=== PATIENT | male | born 1995 | race Caucasian/White ===

== ENCOUNTER 2017-04-19 20:16 | Emergency (ER) | payer OTHER ==
[~2017-04-19] VITALS: Ht 177.8 cm; Wt 85.8 kg
[~2017-04-19 20:16] MED LIST: Z.0.NO CURRENT MEDS
[2017-04-19 20:33] VITALS: BP 138/85; PULSE 106; RESP 12; TEMP 98.8; O2SAT 98
[2017-04-19] MEDS ORDERED: MINEOIL2 PO (20:52)
[2017-04-19] MEDS ORDERED: ASPI325T PO (20:52)
[2017-04-19] MEDS ORDERED: MS C15TA2 PO (20:52)
[2017-04-19] MEDS ORDERED: DOCU100C PO (20:52)
[2017-04-19] MEDS ORDERED: OXYC1CAP PO (20:52)
[2017-04-19] MEDS ORDERED: FAMO20TA2 PO (20:52)
--- NOTE | 2017-04-19 21:08 | PD ---
HPI Chief Complaint: Skin Problem Time Seen by Provider: 20:50 Travel History International Travel<30 days: No Contact w/Intl Traveler<30days: No Traveled to known affect area: No History of Present Illness HPI 21-year-old male with history of avascular necrosis presents to the emergency room for evaluation of rash to his abdomen. He first noticed it today. Patient denies pain or itchiness. Reports some irritation to the area. He has not taken anything or done anything for his symptoms. Patient just had total hip replacement on the right side 4 days ago and has not been able to shower since then. He has taking narcotic pain medication for the surgery and is on baby aspirin. PFSH Past Medical History Hx Anticoagulant Therapy: Yes Chemotherapy: Yes (in past) Diminished Hearing: No Medical other: Yes (avascular necrosis HLH BLOOD DISORDER) Immunizations Current: Yes Tetanus Vaccination: < 5 Years Influenza Vaccination: No Past Surgical History Other Surgery: Yes (SURGERY ON LEFT HAND) Social History Alcohol Use: No Tobacco Use: No Substance Use: No Allergies-Medications (Allergen,Severity, Reaction): Coded Allergies: Bactrim (Verified Allergy, Unknown, rash, 04/19/17) Ceftin (Verified Allergy, Unknown, rash, 04/19/17) Reported Meds & Prescriptions Reported Meds & Active Scripts Active Reported Mineral Oil Liq (Mineral Oil) 15 Ml Liq 15 Ml PO DAILY PRN Docusate Sodium 100 Mg Cap 100 Mg PO BID Famotidine 20 Mg Tab 20 Mg PO DAILY Aspirin 325 Mg Tab 325 Mg PO DAILY Ms Contin (Morphine Sulfate) 15 Mg Tab 15 Mg PO BID Oxycodone (Oxycodone HCl) 5 Mg Cap 5 Mg PO Q3HR PRN Review of Systems Except as stated in HPI: all other systems reviewed are Neg Physical Exam Narrative GENERAL: Well-nourished, well-developed male in no acute distress. Afebrile. Ambulatory. SKIN: Focused skin assessment warm/dry. There are multiple 1 mm erythematous, maculopapular lesions to the abdomen around the hair follicles. HEAD: Normocephalic. EYES: No scleral icterus. No injection or drainage. NECK: Supple, trachea midline. No JVD or lymphadenopathy. CARDIOVASCULAR: Regular rate and rhythm without murmurs, gallops, or rubs. RESPIRATORY: Breath sounds equal bilaterally. No accessory muscle use. PSYCHIATRIC: No delusional thought processes. No hallucinations. Data Data Last Documented VS Vital Signs Date Time Temp Pulse Resp B/P Pulse Ox O2 Delivery O2 Flow Rate FiO2 04/19/17 20:45 04/19/17 20:33 98.8 106 12 98 MDM Medical Decision Making Medical Screen Exam Complete: Yes Emergency Medical Condition: Yes Medical Record Reviewed: Yes Differential Diagnosis Abscess, dermatitis, folliculitis, adverse reaction, Narrative Course 21-year-old male presents to the emergency room for evaluation of a rash to his abdomen for the past day. Patient had total hip replacement 4 days ago and has not had a shower since then. Physical exam reveals multiple 1 mm maculopapular , erythematous lesions surrounding the hair follicles with occasional purulence. This is folliculitis. No indication for antibiotics at this time. Patient was told to follow-up with his primary care physician and/or surgeon and return to the emergency room for worsening symptoms. He understands and agrees to plan. Diagnosis Primary Impression: Folliculitis Referrals: Primary Care Physician Patient Instructions: Folliculitis (ED), General Instructions Additional Instructions: Rest and drink plenty of fluids. Follow up with a primary care physician. Return to emergency room for worsening symptoms, as discussed. Disposition: 01 DISCHARGE HOME Condition: Stable Shauna Farrar Apr 19, 2017 21:08
== END 2017-04-19 22:00 | disposition home or self-care (01) ==
LOC: PHEFT 20:16
DX: L73.9 Follicular disorder, unspecified (principal); Z79.01 Long term (current) use of anticoagulants
CPT/HCPCS: 99281

== ENCOUNTER 2017-04-22 11:25 | Emergency (ER) | payer OTHER ==
[~2017-04-22 11:25] MED LIST changes: +ASPI325T PO; +DOCU100C PO; +FAMO20TA2 PO; +MINEOIL2 PO; +MS C15TA2 PO; +OXYC1CAP PO; -Z.0.NO CURRENT MEDS
[2017-04-22 11:36] VITALS: BP 110/53; PULSE 90; RESP 20; TEMP 98.4; O2SAT 95
[2017-04-22] MEDS ORDERED: COLY4000S PO (12:33)
[2017-04-22] MEDS ORDERED: MAGN1SOL2 PO (12:33)
--- NOTE | 2017-04-22 12:36 | PD ---
HPI Chief Complaint: Abdominal Pain Time Seen by Provider: 12:14 Travel History International Travel<30 days: No Contact w/Intl Traveler<30days: No Traveled to known affect area: No History of Present Illness HPI This 21-year-old male is complaining of lower abdominal. He hit his right hip replaced a week ago at the [facility]. He has not had a bowel movement since then. He was on pain medication for a few days but has not taken any oxycodone recently. He says he has been eating well. He has not had a bowel movement since the surgery. 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 PFSH Past Medical History Hx Anticoagulant Therapy: Yes Chemotherapy: Yes (in past) Diminished Hearing: No Immunizations Current: Yes Influenza Vaccination: No ?: Not Past Surgical History Other Surgery: Yes (SURGERY ON LEFT HAND) Social History Alcohol Use: No Tobacco Use: No Substance Use: No Allergies-Medications (Allergen,Severity, Reaction): Coded Allergies: Bactrim (Verified Allergy, Unknown, rash, 04/22/17) Ceftin (Verified Allergy, Unknown, rash, 04/22/17) Reported Meds & Prescriptions Reported Meds & Active Scripts Active Citrate of Magnesia Liq (Magnesium Citrate) 300 Ml Liq 300 Ml PO DIRECTED Golytely 236 gm (Polyethylene Glycol/Electrolytes) 4,000 Ml Soln 4,000 Ml PO ONCE Reported Mineral Oil Liq (Mineral Oil) 15 Ml Liq 15 Ml PO DAILY PRN Docusate Sodium 100 Mg Cap 100 Mg PO BID Famotidine 20 Mg Tab 20 Mg PO DAILY Aspirin 325 Mg Tab 325 Mg PO DAILY Ms Contin (Morphine Sulfate) 15 Mg Tab 15 Mg PO BID Oxycodone (Oxycodone HCl) 5 Mg Cap 5 Mg PO Q3HR PRN Review of Systems General / Constitutional: No: Fever, Chills HENT: No: Rhinorrhea Cardiovascular: No: Chest Pain or Discomfort, Palpitations Respiratory: No: Cough, Shortness of Breath Gastrointestinal: Positive: Abdominal Pain, Constipation, No: Vomiting, Diarrhea Genitourinary: No: Urgency, Frequency Musculoskeletal: No: Myalgias, Arthralgias Skin: No Rash Physical Exam Narrative GENERAL: Well-developed male SKIN: Focused skin assessment warm/dry. HEAD: Atraumatic. Normocephalic. EYES: Pupils equal and round. No scleral icterus. No injection or drainage. ENT: No nasal bleeding or discharge. Mucous membranes pink and moist. NECK: Trachea midline. No JVD. GASTROINTESTINAL: Abdomen soft, non-tender, nondistended. Hepatic and splenic margins not palpable. Rectal exam there is no stool present. No masses are felt MUSCULOSKELETAL: No obvious deformities. No clubbing. No cyanosis. No edema. NEUROLOGICAL: Awake and alert. No obvious cranial nerve deficits. Motor grossly within normal limits. Normal speech. PSYCHIATRIC: Appropriate mood and affect; insight and judgment normal. Data Data Last Documented VS Vital Signs Date Time Temp Pulse Resp B/P Pulse Ox O2 Delivery O2 Flow Rate FiO2 04/22/17 11:36 98.4 90 20 110/53 95 Orders Bisacodyl Supp (Dulcolax Supp) (04/22/17 12:45) [facility] Medical Decision Making Medical Screen Exam Complete: Yes Emergency Medical Condition: Yes Medical Record Reviewed: Yes Differential Diagnosis Differential includes constipation Narrative Course . No evidence of fecal impaction. Patient has used some Dulcolax. We'll give a Dulcolax here. I have written prescriptions for both citrate of magnesium and GoLYTELY. I recommended to him that he uses citrate of magnesium first and if no results and goes to GoLYTELY. He is stable for discharge Diagnosis Primary Impression: Constipation Qualified Code: K59.00 - Constipation, unspecified constipation type Scripts Magnesium Citrate Liq (Citrate of Magnesia Liq)300 Ml Aki114 Ml PO DIRECTED #1 BOTTLE Ref 0 Prov:Parish Freed MD 04/22/17 Peg-Electrolytes (Golytely 236 gm)4,000 Ml Soln4,000 Ml PO ONCE #1 CONTAINER Ref 0 Prov:Parish Freed MD 04/22/17 Disposition: DISCHARGE HOME Condition: Stable Parish Freed MD Apr 22, 2017 12:36
[2017-04-22] MEDS ORDERED: BISACODYL 10 MG SUPP RECTAL ONE (12:45)
== END 2017-04-22 12:52 | disposition home or self-care (01) ==
LOC: PHED 11:25
DX: K59.00 Constipation, unspecified (principal); Z96.641 Presence of right artificial hip joint; Z79.01 Long term (current) use of anticoagulants
CPT/HCPCS: 99283

== ENCOUNTER 2017-05-16 07:03 | Emergency (ER) | payer OTHER ==
[~2017-05-16] VITALS: Ht 177.8 cm; Wt 85.0 kg
[~2017-05-16 07:03] MED LIST changes: +COLY4000S PO; +MAGN1SOL2 PO
[2017-05-16 07:05] VITALS: BP 133/90; PULSE 79; RESP 15; TEMP 98; O2SAT 99
[2017-05-16] MEDS ORDERED: SODIUM CHLORIDE 0.9% FLUSH 10 ML FLUSH IVF PRN (07:30)
--- NOTE | 2017-05-16 07:35 | PD ---
HPI Chief Complaint: Respiratory Symptoms Time Seen by Provider: 07:19 Travel History International Travel<30 days: No Contact w/Intl Traveler<30days: No Traveled to known affect area: No History of Present Illness HPI 21-year-old male states over the past 4 weeks he has been short of breath. He states he has a hard time catching his breath and getting in a deep breath. He states when this first started he went to an emergency room there where he had surgery for his hip or placement in [place] and had a CAT scan that was negative. He states he has not followed up since then and doesn't have a primary care physician. He states he does have an autoimmune specialist that he sees about every other year in [place] and in regards to that he has been fine. He denies any pain, fever or other concurrent complaints. His symptoms are improving now here in the emergency department at rest. He states he feels like his symptoms were worse last night. PFSH Past Medical History Narrative Medical Notes avascular necrosis status post hip replacement, autoimmune condition "hlh " Hx Anticoagulant Therapy: Yes Chemotherapy: Yes (in past) Diminished Hearing: No Immunizations Current: Yes Past Surgical History Joint Replacement: Yes (hip) Other Surgery: Yes (SURGERY ON LEFT HAND) Social History Alcohol Use: No Tobacco Use: No Substance Use: No Allergies-Medications (Allergen,Severity, Reaction): Coded Allergies: Bactrim (Verified Allergy, Unknown, rash, 05/16/17) Ceftin (Verified Allergy, Unknown, rash, 05/16/17) Uncoded Allergies: CEFEPIME (Allergy, Mild, 05/16/17) Reported Meds & Prescriptions Reported Meds & Active Scripts Active Reported Famotidine 20 Mg Tab 20 Mg PO DAILY Aspirin 325 Mg Tab 325 Mg PO DAILY Review of Systems Except as stated in HPI: all other systems reviewed are Neg Physical Exam Narrative GENERAL: Well-nourished, well-developed patient. well appearing SKIN: Warm and dry. HEAD: Normocephalic and atraumatic. EYES: No injection or drainage. ENT: No nasal drainage noted. NECK: Supple, trachea midline. CARDIOVASCULAR: Regular rate and rhythm RESPIRATORY: Breath sounds equal bilaterally. No accessory muscle use. GASTROINTESTINAL: Abdomen soft, non-tender, nondistended. EXTREMITIES: No edema. NEUROLOGICAL: Awake and alert. Motor and sensory grossly within normal limits. Normal speech. Data Data Last Documented VS Vital Signs Date Time Temp Pulse Resp B/P Pulse Ox O2 Delivery O2 Flow Rate FiO2 05/16/17 09:39 63 20 114/74 98 Room Air 05/16/17 07:05 98.0 Orders Electrocardiogram (05/16/17 07:27) Basic Metabolic Panel (Bmp) (05/16/17 07:27) Complete Blood Count With Diff (05/16/17 07:27) D-Dimer (05/16/17 07:27) Magnesium (Mg) (05/16/17 07:27) Prothrombin Time / Inr (Pt) (05/16/17 07:27) Act Partial Throm Time (Ptt) (05/16/17 07:27) Chest, Single Ap (05/16/17 07:27) Ecg Monitoring (05/16/17 07:27) Iv Access Insert/Monitor (05/16/17 07:27) Oximetry (05/16/17 07:27) Sodium Chloride 0.9% Flush (Ns Flush) (05/16/17 07:30) Ct Pulmonary Angiogram (05/16/17 ) Iohexol 350 Inj (Omnipaque 350 Inj) (05/16/17 10:02) Labs Laboratory Tests Test 05/16/17 07:50 White Blood Count 5.2 TH/MM3 Red Blood Count 4.76 MIL/MM3 Hemoglobin 13.5 GM/DL Hematocrit 41.0 % Mean Corpuscular Volume 86.1 FL Mean Corpuscular Hemoglobin 28.4 PG Mean Corpuscular Hemoglobin 33.0 % Concent Red Cell Distribution Width 13.5 % Platelet Count 235 TH/MM3 Mean Platelet Volume 7.5 FL Neutrophils (%) (Auto) 54.0 % Lymphocytes (%) (Auto) 31.8 % Monocytes (%) (Auto) 7.4 % Eosinophils (%) (Auto) 6.0 % Basophils (%) (Auto) 0.8 % Neutrophils # (Auto) 2.8 TH/MM3 Lymphocytes # (Auto) 1.6 TH/MM3 Monocytes # (Auto) 0.4 TH/MM3 Eosinophils # (Auto) 0.3 TH/MM3 Basophils # (Auto) 0.0 TH/MM3 CBC Comment DIFF FINAL Differential Comment Prothrombin Time 10.7 SEC Prothromb Time International 1.0 RATIO Ratio Activated Partial 29.3 SEC Thromboplast Time D-Dimer Quantitative (PE/DVT) 1.23 MG/L FEU Sodium Level 141 MEQ/L Potassium Level 4.0 MEQ/L Chloride Level 105 MEQ/L Carbon Dioxide Level 29.2 MEQ/L Anion Gap 7 MEQ/L Blood Urea Nitrogen 13 MG/DL Creatinine 0.70 MG/DL Estimat Glomerular Filtration 141 ML/MIN Rate Random Glucose 82 MG/DL Calcium Level 9.4 MG/DL Magnesium Level 2.2 MG/DL MDM Medical Decision Making Medical Screen Exam Complete: Yes Emergency Medical Condition: Yes Medical Record Reviewed: Yes (pmh confirmed) Interpretation(s) CBC & BMP Diagram 05/16/17 07:50 Last 24 hours Impressions Chest X-Ray 05/16/17726 Signed Impressions: Service Date/Time: Tuesday, May 16, 2017 07:30 - CONCLUSION: Normal examination. Houston Ann MD CT Angiography 05/16/17 0000 Signed Impressions: Service Date/Time: Tuesday, May 16, 2017 09:49 - CONCLUSION: Normal examination. Houston Ann MD Differential Diagnosis PE, anemia, pneumonia, pneumothorax Narrative Course Will check blood work, chest x-ray and reevaluate. Lengthy discussion with patient and family and we'll start with blood test d-dimer first which they are in agreement to ed workup no acute, Patient denies any new complaints and states that they are feeling better. Patient happy with care, all questions answered. Patient knows that follow up is incumbent on them and to return to the emergency room immediately if new or worsening symptoms develop. Patient given strict return precautions, vitals reviewed and are normal, agrees to further workup as an outpatient. Diagnosis Primary Impression: Shortness of breath Patient Instructions: General Instructions Additional Instructions: return as needed, follow with primary thursday Med/Other Pt SpecificInfo: No Change to Meds Disposition: 01 DISCHARGE HOME Condition: Stable Kaitlin Fournier MD May 16, 2017 07:35
--- NOTE | 2017-05-16 07:48 | RADRPT ---
EXAM DATE/TIME: 05/16/2017 07:30 [facility] COMPARISON: No previous studies available for comparison. INDICATIONS : Shortness of breath for 1 week MEDICAL HISTORY : None. SURGICAL HISTORY : None. ENCOUNTER: Initial ACUITY: 1 week PAIN SCORE: 0/10 LOCATION: Bilateral chest FINDINGS: A single view of the chest demonstrates the lungs to be symmetrically aerated without evidence of mas s, infiltrate or effusion. The cardiomediastinal contours are unremarkable. Osseous structures are intact. CONCLUSION: Normal examination. Houston Ann MD on May 16, 2017 at 7:47 Board Certified Radiologist. This report was verified electronically.
[2017-05-16 08:03] LABS: AUTOMATED NEUTROPHIL # 2.8 TH/MM3 (1.8-7.7); BASOPHIL % 0.8 % (0.0-2.0); EOSINOPHIL # 0.3 TH/MM3 (0-0.4); HEMO FLAGS DIFF FINAL; LYMPH % 31.8 % (9.0-44.0); LYMPHOCYTE # 1.6 TH/MM3 (1.0-4.8); MEAN CELL VOLUME 86.1 FL (80.0-100.0); MEAN CORPUSCULAR HEMOGLOBIN 28.4 PG (27.0-34.0); MONO % 7.4 % (0.0-8.0); PLATELET COUNT 235 TH/MM3 (150-450); RED BLOOD COUNT 4.76 MIL/MM3 (4.50-5.90); RED CELL DISTRIBUTION WIDTH 13.5 % (11.6-17.2); WHITE BLOOD COUNT 5.2 TH/MM3 (4.0-11.0)
[2017-05-16 08:18] LABS: BICARBONATE 29.2 MEQ/L (21.0-32.0); MAGNESIUM 2.2 MG/DL (1.5-2.5)
[2017-05-16 08:19] LABS: APTT (PATIENT) 29.3 SEC (24.3-30.1); PROTHROMBIN TIME - PATIENT 10.7 SEC (9.8-11.6)
[2017-05-16 09:39] VITALS: BP 114/74; PULSE 63; RESP 20; O2SAT 98
[2017-05-16] MEDS ORDERED: IOHEXOL 350 MG/ML 10 ML VIAL (for RAD DIAG) IV ONE (10:02)
--- NOTE | 2017-05-16 10:16 | RADRPT ---
EXAM DATE/TIME: 05/16/2017 09:49 [facility] COMPARISON: No previous studies available for comparison. INDICATIONS : Shortness of breath since last night. IV CONTRAST: 73 cc Omnipaque 350 (iohexol) IV RADIATION DOSE: 23.43 CTDIvol (mGy) MEDICAL HISTORY : avascular necrosis SURGICAL HISTORY : hip surgery, shoulder surgery ENCOUNTER: Initial ACUITY: 1 day PAIN SCALE: 0/10 LOCATION: Bilateral chest TECHNIQUE: Volumetric scanning of the chest was performed using a pulmonary embolism protocol MIP images were re constructed. Using automated exposure control and adjustment of the mA and/or kV according to patien t size, radiation dose was kept as low as reasonably achievable to obtain optimal diagnostic quality images. DICOM format image data is available electronically for review and comparison. FINDINGS: PULMONARY ARTERIES: No filling defects are seen in the pulmonary arteries through the segmental level. LUNGS: There is no consolidation or pneumothorax . No concerning pulmonary nodule is visualized. PLEURAE: There is no pleural thickening or pleural effusion. MEDIASTINUM: There is good visualization of the great vessels of the middle mediastinum. No evidence of mediastin al or hilar adenopathy/mass. MUSCULOSKELETAL: Within normal limits for patient age. MISCELLANEOUS: The visualized upper abdominal organs demonstrate no acute abnormality. CONCLUSION: Normal examination. Houston Ann MD on May 16, 2017 at 10:13 Board Certified Radiologist. This report was verified electronically.
--- NOTE | 2017-05-16 15:25 | EKG ---
Date Performed: 05/16/2017 Time Performed: 07:34:40 PTAGE: 21 years EKG: Sinus rhythm NORMAL ECG NO PREVIOUS TRACING DOCTOR: Manuelito Zuñiga Interpretating Date/Time 05/16/2017 15:25:01
== END 2017-05-16 10:59 | disposition home or self-care (01) ==
LOC: NEPE 07:03
DX: R06.02 Shortness of breath (principal); Z79.82 Long term (current) use of aspirin; D76.1 Hemophagocytic lymphohistiocytosis; Z96.649 Presence of unspecified artificial hip joint
CPT/HCPCS: 71010; 71275; 80048; 83735; 85025; 85379; 85610; 85730; 93005; 99285; Q9967

== ENCOUNTER 2017-05-22 19:18 | Emergency (ER) | payer OTHER ==
[~2017-05-22] VITALS: Ht 177.8 cm; Wt 85.0 kg
[~2017-05-22 19:18] MED LIST changes: -COLY4000S PO; -DOCU100C PO; -MAGN1SOL2 PO; -MINEOIL2 PO; -MS C15TA2 PO; -OXYC1CAP PO
[2017-05-22 19:20] VITALS: BP 133/76; PULSE 90; RESP 16; TEMP 98.5; O2SAT 98
--- NOTE | 2017-05-22 20:47 | PD ---
HPI Chief Complaint: Edema Time Seen by Provider: 20:45 Travel History International Travel<30 days: No Contact w/Intl Traveler<30days: No Traveled to known affect area: No History of Present Illness HPI 21 year old male presents to the emergency department for evaluation of swelling around his surgical incision site to the right hip. Patient had surgery [address] Karli Jorgensen at [facility] in [place]. He states he has been doing well. However, he noticed some worsening pain approximately 2 hours prior to arrival and noticed that it was swollen around the site. Patient denies any fevers or chills. No chest pain or shortness breath. No abdominal pain. No nausea, vomiting, diarrhea. Patient denies any erythema. He denies the loss of range of motion. Patient reports chronic numbness around the incision site. He states he has taken aspirin 325 mg twice a day with famotidine. Patient states he has recently increased his activity. He has no other complaints at this time. PFSH Past Medical History Hx Anticoagulant Therapy: Yes (ASA 325MG BID) Autoimmune Disease: Yes (HLH) Chemotherapy: Yes Diminished Hearing: No Immune Disorder: Yes (HLH ) Medical other: Yes (avascular necrosis) Immunizations Current: Yes Past Surgical History Joint Replacement: Yes (r.hip) Other Surgery: Yes (WISDOM TEETH EXTRACTION) Social History Alcohol Use: No Tobacco Use: No Substance Use: No Allergies-Medications (Allergen,Severity, Reaction): Coded Allergies: Bactrim (Verified Allergy, Unknown, rash, 05/22/17) Ceftin (Verified Allergy, Unknown, rash, 05/22/17) Uncoded Allergies: CEFEPIME (Allergy, Mild, 05/16/17) Reported Meds & Prescriptions Reported Meds & Active Scripts Active Reported Famotidine 20 Mg Tab 20 Mg PO DAILY Aspirin 325 Mg Tab 325 Mg PO DAILY Review of Systems Except as stated in HPI: all other systems reviewed are Neg Physical Exam Narrative GENERAL: Well-nourished, well-developed male patient, afebrile. SKIN: Focused skin assessment warm/dry. Patient has well healing incision site to the right anterior hip. He has swelling noted around the hip is consistent with a hematoma. No erythema. No pain or tenderness to palpation. HEAD: Normocephalic. Atraumatic. EYES: No scleral icterus. No injection or drainage. NECK: Supple, trachea midline. No JVD or lymphadenopathy. CARDIOVASCULAR: Regular rate and rhythm without murmurs, gallops, or rubs. Bilateral radial and pedal pulses are 2+. RESPIRATORY: Breath sounds equal bilaterally. No accessory muscle use. Lungs sounds are clear to auscultation. GASTROINTESTINAL: Abdomen soft, non-tender, nondistended. MUSCULOSKELETAL: No cyanosis, or edema. Patient has full range of motion of the right hip. BACK: Nontender without obvious deformity. No CVA tenderness. Data Data Last Documented VS Vital Signs Date Time Temp Pulse Resp B/P Pulse Ox O2 Delivery O2 Flow Rate FiO2 05/22/17 19:20 98.5 90 16 133/76 98 Room Air Orders Ed Poc Ultrasound (05/22/17 ) MDM Medical Decision Making Medical Screen Exam Complete: Yes Emergency Medical Condition: Yes Medical Record Reviewed: Yes Differential Diagnosis Hematoma versus cellulitis versus abscess Narrative Course 21 year old male presents to the emergency department for evaluation of swelling to his right hip incision site started today. Physical exam is consistent with hematoma. My attending physician, Dr. Weldon, examined patient has well. She performed a bedside ultrasound and ultrasound is also consistent with hematoma. Hematoma measures approximately 3 cm by 10 cm. patient started to rotate ice and heat, Tylenol or ibuprofen [id number] as needed for pain. He is to call his surgeon on Thursday and notify her of new hematoma formation. He is return for any acute worsening symptoms. Diagnosis Primary Impression: Hematoma Referrals: Orthopaedic Surgeon Patient Instructions: General Instructions, Hematoma (ED) Additional Instructions: Rotate ice/heat. [id number] Tylenol, ibuprofen for pain. Let your surgeon know on Thursday that you have new hematoma formation to right hip. Return to the emergency department for any acute worsening of symptoms. Med/Other Pt SpecificInfo: No Change to Meds Disposition: 01 DISCHARGE HOME Condition: Stable Anel Beth SARA May 22, 2017 20:47
--- NOTE | 2017-05-22 20:58 | PD ---
Data Data Last Documented VS Vital Signs Date Time Temp Pulse Resp B/P Pulse Ox O2 Delivery O2 Flow Rate FiO2 05/22/17 19:20 98.5 90 16 133/76 98 Room Air Orders Ed Poc Ultrasound (05/22/17 ) MDM Supervised Visit with MARY: Yes Narrative Course I, Dr. Weldon, have reviewed the advance practice practioner's documentation and am in agreement, met with the patient face to face, made the diagnosis, and the medical decision making was done by me. *My assessment and Findings: 21-year-old male proximal a 5 weeks post right hip replacement from avascular necrosis here with spontaneous swelling of his surgical site shortly prior to arrival today. He has increased his activity. During recent swimming. He notes the swelling for the last 1-2 hours, some slight pain with ambulation and weightbearing but no inability to ambulate or move. On exam he has approximately 3 x 12 cm region of swelling underneath his surgical site but the incision itself is clean, well healed, without erythema or warmth. Suspect hematoma. Ultrasound performed confirming same, patient reassured and discharged home. Procedures Procedure Narrative Patient consented to bedside ultrasound. Curvilinear probe was used in the area of interest over the right thigh at his surgical site revealing a approximately 3 x 11 cm area of hematoma with clots. Michelle Weldon MD May 22, 2017 20:58
== END 2017-05-22 21:22 | disposition home or self-care (01) ==
LOC: NEPE 19:18
DX: R22.41 Localized swelling, mass and lump, right lower limb (principal); Z96.641 Presence of right artificial hip joint
CPT/HCPCS: 99284